=== PATIENT | female | born 1960 | race Caucasian/White ===

== ENCOUNTER 2023-01-18 06:45 | Day surgery (SDC) | payer OTHER ==
[~2023-01-18] VITALS: Ht 157.5 cm; Wt 71.7 kg
[2023-01-18] MEDS ORDERED: SIMETHICONE 40 MG/0.6 ML ML ONE (07:27)
[2023-01-18] MEDS ORDERED: MEPERIDINE 50 MG/ML VIAL ONE (07:28)
[2023-01-18] MEDS ORDERED: MIDAZOLAM HCL 5 MG/5 ML VIAL ONE (07:28)
[2023-01-18 14:45] VITALS: BP_SYST 106
== END 2023-01-18 09:35 | disposition home or self-care (01) ==
LOC: SDS 06:45 → SMU 06:47 → SDS 09:35
PROVIDERS: ATTEND Internal Medicine Gastroenterology
DX: Z12.11 Encounter for screening for malignant neoplasm of colon (principal); K64.8 Other hemorrhoids
CPT/HCPCS: 45378; 99152; G0378; J2250; J2175